=== PATIENT | female | born 1975 | race Caucasian/White ===

== ENCOUNTER → 2022-09-18 08:21 | Outpatient (BNVA) | payer OTHER, SELFPAY | PROVIDERS: PCP Nurse Practitioner Family; Visit Provider Physician Assistant Surgical ==

== ENCOUNTER → 2022-09-29 13:45 | Outpatient (BNVA) | payer OTHER, SELFPAY | PROVIDERS: PCP Nurse Practitioner Family; Visit Provider Physician Assistant Surgical | DX: E66.01 Morbid (severe) obesity due to excess calories (principal); G47.33 Obstructive sleep apnea (adult) (pediatric) | CPT/HCPCS: 99202 ==

== ENCOUNTER 2022-10-13 06:30 | Outpatient (REF) | payer OTHER, SELFPAY ==
--- NOTE | ~2022-10-13 | XR_ITS ---
EXAMINATION: XR CHEST CLINICAL INFORMATION: Bariatric service evaluation. E66.01. COMPARISON: None available. TECHNIQUE: 2 views of the chest were obtained. FINDINGS: Lungs are clear. No airspace consolidation or groundglass opacity or effusion. Costophrenic sulci are well-defined. Cardiopericardial silhouette within limits of normal. Vascularity normal. The hilar and mediastinal contours are unremarkable. There are multilevel degenerative disc changes thoracic spine. XR/XR chest 2V IMPRESSION: Unremarkable examination.
--- NOTE | 2022-10-13 06:38 | ECG_ITS ---
Test Reason : e66.01 Blood Pressure : / mmHG Vent. Rate : 073 BPM Atrial Rate : 073 BPM P-R Int : 154 ms QRS Dur : 112 ms QT Int : 412 ms P-R-T Axes : 019 010 030 degrees QTc Int : 453 ms Normal sinus rhythm Incomplete right bundle branch block Borderline ECG No previous ECGs available Referred By: Garcia Quiroz Electronically Signed By:VEDA GILLETTE
[2022-10-13 06:51] LABS: MANUAL DIFF FLAG NO
[2022-10-13 08:02] LABS: Basophils Percent Auto 0.7 % (0-2); Eosinophils Absolute Auto 0.1 X10*3/uL (0.0-0.4); Eosinophils Percent Auto 2.1 % (0-4); Hematocrit 44.1 % (37.0-47.0); Hemoglobin 14.1 g/dl (12.0-16.0); Imm Gran Abs Auto 0.01 X10*3/uL (0.00-0.03); Imm Gran Pct Auto 0.2 % (0.0-0.4); Lymphocytes Absolute Auto 1.1 X10*3/uL (1.2-4.9); Lymphocytes Percent Auto 26.1 % (20-40); Mean Corpuscular Hemoglobin 29.8 pg (27.0-33.0); Mean Corpuscular Volume 93.2 fL (80.0-98.0); Mean Platelet Volume 9.8 fL (9.4-12.3); Monocytes Absolute Auto 0.3 X10*3/uL (0.1-1.2); Monocytes Percent Auto 6.6 % (2-11); Neutrophils Absolute Auto 2.8 x10*3/uL (2.0-8.3); Neutrophils Percent Auto 64.3 % (45-73); Platelet Count 245 X10*3/uL (160-400); Red Blood Count 4.73 X10*6/uL (4.20-5.50); Red Cell Distribution Width 12.6 % (11.0-16.0); White Blood Count 4.4 X10*3/uL (4.8-10.8)
[2022-10-13 08:15] LABS: Estimated Average Glucose 105 mg/dL; Hemoglobin A1c % 5.3 %
[2022-10-13 08:47] LABS: Alanine Aminotransferase 15 U/L (0-31); Albumin Level 4.4 g/dL (3.5-5.0); Alkaline Phosphatase 86 U/L (39-117); Anion Gap 15 (12-20); Aspartate Amino Transferase 18 U/L (5-31); Bilirubin Total 0.7 mg/dL (0.0-1.0); Blood Urea Nitrogen 21 mg/dL (9-16); C Reactive Protein 0.14 mg/dL (< or = 0.50); Calcium 9.8 mg/dL (8.4-10.2); Carbon Dioxide 26 mmol/L (22-29); Chloride 108 mmol/L (96-108); Cholesterol 168 mg/dL; Estimated Glomerular Filt Rate > 60; Glucose Random 97 mg/dL (60-115); HDL Cholesterol 55 mg/dL; Iron 84 mcg/dL (30-160); LDL Cholesterol Calculated 104 mg/dl; Percent Iron Saturation 31 % (15-50); Potassium 4.7 mmol/L (3.3-5.1); Sodium 144 mmol/L (135-145); Total Iron Binding Capacity 274 mcg/dL (228-428); Triglycerides 48 mg/dL; Unsaturated Iron Binding 190 ug/dL
[2022-10-13 08:58] LABS: Ferritin 147 ng/mL (10-250); Folate 12.1 ng/mL (> or = 4.0); Insulin 3 uU/mL (2-29); TSH reflex Free T4 1.48 uIU/mL (0.32-4.0); Vitamin B12 347 pg/mL (200-900); Vitamin D 25-OH Total 20.1 ng/mL (>30)
[2022-10-16 15:29] LABS: Calcium (PTHI) 9.8 mg/dL (8.6-10.2); PTHI 30 pg/mL (16-77)
[2022-10-18 05:18] LABS: Zinc 86 mcg/dL (60-130)
[2022-10-19 10:38] LABS: Vitamin A 48 mcg/dL (38-98)
[2022-10-19 16:33] LABS: Vitamin B1 14 nmol/L (8-30)
== END 2022-10-13 06:31 | disposition home or self-care (01) ==
LOC: HO.XRAY 06:30
PROVIDERS: PCP Nurse Practitioner Family; Visit Provider Physician Assistant Surgical
DX: E66.01 Morbid (severe) obesity due to excess calories (principal); I10 Essential (primary) hypertension
CPT/HCPCS: 36415; 71046; 80053; 80061; 82306; 82607; 82728; 82746; 83036; 83525; 83540; 83970; 84425; 84443; 84590; 84630; 85025; 86140; 93005

== ENCOUNTER 2022-10-20 09:12 | Outpatient (REF) | payer OTHER, SELFPAY ==
[2022-10-21 14:08] LABS: H Pylori Breath Test Negative (Negative)
== END 2022-10-20 09:13 | disposition home or self-care (01) ==
LOC: HO.LNP 09:12
PROVIDERS: PCP Nurse Practitioner Family; Visit Provider Physician Assistant Surgical
DX: E66.01 Morbid (severe) obesity due to excess calories (principal); I10 Essential (primary) hypertension; Z71.3 Dietary counseling and surveillance; Z79.899 Other long term (current) drug therapy; Z11.0 Encounter for screening for intestinal infectious diseases
CPT/HCPCS: 83013; 99211; 99212

== ENCOUNTER → 2022-10-27 08:54 | Outpatient (BNVA) | payer OTHER, SELFPAY | PROVIDERS: PCP Nurse Practitioner Family; Visit Provider Counselor Mental Health ==

== ENCOUNTER → 2022-10-30 08:50 | Outpatient (BNVA) | payer OTHER, SELFPAY | PROVIDERS: PCP Nurse Practitioner Family; Visit Provider Dietitian, Registered | DX: E66.01 Morbid (severe) obesity due to excess calories (principal); Z68.41 Body mass index [BMI] 40.0-44.9, adult | CPT/HCPCS: 97802 ==

== ENCOUNTER → 2022-11-02 14:50 | Outpatient (REF) | payer OTHER, SELFPAY | LOC: HO.SL 14:50 | PROVIDERS: PCP Nurse Practitioner Family; Visit Provider Physician Assistant Surgical | DX: G47.33 Obstructive sleep apnea (adult) (pediatric) (principal) | CPT/HCPCS: 95806 ==

== ENCOUNTER → 2022-11-07 07:26 | Outpatient (REF) | payer OTHER, SELFPAY ==
--- NOTE | 2022-11-07 07:30 | CA_ITS ---
Transthoracic Echocardiogram Patient (Last, First, Middle): Thais Dugan, Gender: Female Date of : 1975 Age: 47 Procedure Date: 11/07/2022 Procedure Type: Transthoracic Echocardiogram Location: OP Height: 157.48 cm Weight: 108.41 kg BSA: 2.06 m2 Heart Rate: bpm BP: 130 / 90 mmHg Appraisal Technician: TO Referring MD: Garcia WOODS Symptoms: R94.31 - Abnormal electrocardiogram [ECG] [EKG] Study Quality: Fair/Contrast ECG Rhythm: Sinus Conclusions: - The left ventricular systolic function is normal. The calculated ejection fraction is 63% by biplane method. - No obvious valvular pathology seen on this study. Findings Procedure Information Contrast agent, definity, is being given per protocol without apparent complications. Left Ventricle Normal left ventricular cavity size. The left ventricular systolic function is normal. The calculated ejection fraction is 63% by biplane method. There is no evidence of regional wall motion abnormalities. Diastolic function is normal for age. There is mild septal asymmetric hypertrophy. Right Ventricle Normal right ventricular cavity size and systolic function. Atria Both atria are normal in size. Aortic Valve There is a normal trileaflet aortic valve. There is no aortic valve stenosis. There is no aortic valve regurgitation. Mitral Valve The mitral valve appears normal. There is trace mitral valve regurgitation. There is no mitral valve stenosis. Pulmonic Valve The pulmonic valve is likely normal. Tricuspid Valve There is trace tricuspid valve regurgitation. There is no evidence of pulmonary hypertension. Great Vessels The asc aorta is normal in size. Venous The inferior vena cava is normal in size and collapses greater than 50% with inspiration. Pericardium/Pleural There is a trivial pericardial effusion. Prior Study Comparison No prior study available for comparison. Recommendations, Care & Conclusions No obvious valvular pathology seen on this study. Measurements 2D Linear Measurements IVSd: 1.14 0.6-0.9/0.6-1.0 cm LVIDd: 4.52 3.9-5.3/4.2-5.9 cm LVIDd Index: 2.19 2.4-3.2/2.2-3.1 cm/m2 LVIDs: 2.95 2.0-3.6 cm LVPWd: 0.84 0.7-1.1 cm LA Diam: 3.80 2.7-3.8/3.0-4.0 cm LAIDs Index: 1.84 1.5-2.3 cm/m2 LV Mass: 189.83 67-162/88-224 g LV Mass Index: 92.15 43-95/49-115 g/m2 LVOT Diam: 2.40 3.0+(-)1.3 cm 2D Systolic Function EF 4C: 64.70 >55% EF 2C: 61.70 >55% EF BiP: 63.20 >55% Mitral Valve MV Pk E: 0.84 MV PK A: 0.88 MV Decel Time: 168.00 E/A: 1.00 E'Lateral: 10.00 E'Medial: 7.51 E/E' Med: 11.20 E/E' Lat: 8.40 PHT: 101.00 MVA PHT: 2.18 [place]: 3.32 Aortic Valve AoV Pk Deni: 1.23 AoV Mn Deni: 0.88 AoV VTI: 0.28 AoV Pk Grad: 6.00 Aov Mn Grad: 3.00 ORTIZ Cont.VTI: 3.47 LVOT LVOT Pk Deni: 0.97 LVOT Mn Deni: 0.62 LVOT VTI: 0.21 LVOT Pk Grad: 4.00 LVOT Mn Grad: 2.00 LVOT Diam: 2.40 LVOT Area: 4.52 Diastolic Function MV Pk E: 0.84 MV Pk A: 0.88 E/A: 1.00 E'Medial: 7.51 E/E' Med: 11.20 E' Laterial: 10.00 E/E' Lat: 8.40 Right Ventricle TAPSE (mm): 34.00 TVS' Deni: 16.40 Tricuspid Valve TR Pk Deni: 2.58 TR Pk Grad: 27.00 RA Press: 3.00 RVSP: 30.00 Great Vessels Aorta Sinus of Valsalva: 3.20 2.0-3.5 cm Ao Asc: 3.00 2.1-3.4 cm Updated in Other Vendor System with Status of Final Jason Valdez MD electronically signed on 11/07/2022 3:31:57 PM with status of Final
== END ==
LOC: HO.CARD 07:26
PROVIDERS: PCP Nurse Practitioner Family; Visit Provider Physician Assistant Surgical
DX: R94.31 Abnormal electrocardiogram [ECG] [EKG] (principal)
CPT/HCPCS: 93306; Q9957

== ENCOUNTER → 2022-11-14 09:03 | Outpatient (REF) | payer OTHER, SELFPAY ==
--- NOTE | ~2022-11-14 | NM_ITS ---
Myocardial perfusion study Indication: Abnormal EKG to evaluate for myocardial ischemia Technique: The patient was brought in for a Lexiscan perfusion study on 11/14/2022. Patient performed low-level exercise and was injected 0.4 mg of Lexiscan intravenously. Within a minute of injection, 40 mCi of sestamibi was given intravenously. Images were obtained using the SPECT gamma camera interlaced with the gating device. Images were obtained in supine position. Resting perfusion study was performed on 11/15/2022. Patient was administered 40 mCi of sestamibi intravenously at rest. Images were then obtained in supine position. Images obtained with and without CT attenuation. Total DLP 151 mGy-cm. Images were processed with the software and compared side to side in short axis, horizontal long axis and vertical long axis views. Findings: The stress perfusion study showed non attenuated images show small area of mildly to moderately reduced uptake in the apex of the myocardium. There is suggestion of left ventricle hypertrophy. Attenuation corrected images show normal uptake of tracer myocardium.. The gated study shows normal LV systolic function with calculated LVEF of 60%. LV cavity is normal in size. The gated study shows normal systolic wall thickening and contraction of segments. Resting study shows non attenuated images show improved uptake in the apex of the myocardium. Attenuation corrected images are suboptimal. Gating at rest reveals normal systolic wall motion with ejection fraction at 50%. The findings are consistent with equivocal findings of possible small to moderate intensity small area of apical ischemia. NM/NM wade perf SPECT rest & str Impression: 1. Myocardial perfusion imaging study shows equivocal apical ischemia 2. Gated LVEF is 60% 3. Transient ischemic dilatation not present EKG nondiagnostic for ischemia
--- NOTE | 2022-11-14 09:06 | CA_ITS ---
Acquisition Time: 2022-11-14 09:13:34 Total Exercise Time: 00:02:00 Test Indications: Abnormal ECG Medications: LISINOPRIL HYDROXYZINE SERTRALINE Protocol: LEXISCAN Max HR: 120 BPM 70% of Pred: 171 BPM Max BP: 128/072 mmHG Max Work Load: 1.0 METS Pharmacological stress test with Lexiscan injection while sitting and kicking her legs, without anginal symptoms, without arrhythmias, with normotensive response to injection, without EKG changes. Nuclear images pending. Test reviewed with Dr. Woods. Referred By: Garcia Quiroz Overread By: WILMA STORM
== END ==
LOC: HO.CARD 09:03
PROVIDERS: PCP Nurse Practitioner Family; Visit Provider Physician Assistant Surgical
DX: R94.31 Abnormal electrocardiogram [ECG] [EKG] (principal)
CPT/HCPCS: 78452; 93017; A9500; J0280; J2785

== ENCOUNTER → 2022-11-15 12:47 | Outpatient (BNVA) | payer OTHER, SELFPAY | PROVIDERS: PCP Nurse Practitioner Family; Visit Provider Nurse Practitioner Family | DX: R06.83 Snoring (principal) | CPT/HCPCS: 99202 ==

== ENCOUNTER → 2022-11-17 11:50 | Outpatient (BNVA) | payer OTHER, SELFPAY | PROVIDERS: PCP Nurse Practitioner Family; Visit Provider Counselor Mental Health ==

== ENCOUNTER 2022-11-21 08:55 | Outpatient (REF) | payer OTHER, SELFPAY ==
--- NOTE | ~2022-11-21 | FL_ITS ---
EXAMINATION: XR FLUOROSCOPY UPPER GI WITH AIR CLINICAL INFORMATION: Morbid (severe) obesity due to excess calories. COMPARISON: None available. TECHNIQUE: Routine upper GI air-contrast study was performed in upright and lying position. FINDINGS: Following oral administration of thick barium and effervescent granules, there is normal propagation of bolus from the oral cavity through the pharynx, esophagus into stomach without any evidence of obstruction, narrowing or stricture. On placing patient supine and prone lying the course, caliber and peristalsis of the stomach duodenal bulb and the sweep is normal. The mucosal pattern of the stomach and duodenum is normal. Barium pooling and fragmentation in the distal stomach. No ulceration seen. There is small sliding hiatal hernia with mild gastroesophageal reflux. FLUOROSCOPY TIME: 1.2 minutes DOSE AREA PRODUCT: 32.356 uGy-m2 (microgray-meter squared). IMAGES: 36 FL/FL upper GI w air IMPRESSION: Small sliding hiatal hernia with barium pooling and fragmentation distal stomach suspicious for hyperacidity. There is mild gastroesophageal reflux.
--- NOTE | ~2022-11-21 | US_ITS ---
EXAMINATION: US COMPLETE ABDOMEN WITH LIVER ELASTOGRAPHY CLINICAL INFORMATION: Obesity COMPARISON: None available. TECHNIQUE: Real-time imaging of the abdominal viscera. Noninvasive ultrasound liver fibrosis assessment is performed using Lilly ElastPQ point quantification shear wave elastography (2D-SWE) with a C5-2 MHz transducer. Multiple elastography samples are obtained. FINDINGS: PANCREAS: Limited visualization of the pancreas due to bowel gas. ABDOMINAL AORTA: The proximal, middle, and distal aortic segments are normal in caliber. INFERIOR VENA CAVA: Visualized portions are normal. LIVER: Normal. The liver demonstrates normal size, contour and echogenicity. No focal lesion or intrahepatic biliary duct dilatation. The right lobe measures 16 cm in length. The left lobe measures 11 cm in length. Portal flow is normal/hepatopedal Shear wave liver elastography median stiffness is 2 m/s (reference: normal median stiffness is 1.3 m/s or less). IQR/median stiffness to assess sampling precision is 0.1 (reference: good quality data set is IQR/median stiffness of 0.15 or less). GALLBLADDER: Surgically removed COMMON BILE DUCT: Normal in caliber measuring 0.4 cm in diameter. RIGHT KIDNEY: Normal. No hydronephrosis. No renal calculi or focal parenchymal lesions. The kidney measures 9 cm in maximum dimension. LEFT KIDNEY: Normal. No hydronephrosis. No renal calculi or focal parenchymal lesions. The kidney measures 11 cm in maximum dimension. SPLEEN: Normal. The spleen measures 10 cm in maximum dimension. FREE FLUID: None. US/US abdomen comp w elastography IMPRESSION: 1. Impression: Normal-appearing liver. Postcholecystectomy. Limited visualization of the pancreas. 2. Liver elastography: Adequate liver sampling. Increased liver stiffness suggestive of compensated advanced chronic liver disease but need further test for confirmation. REFERENCE: Society of Radiologists in Ultrasound Liver Stiffness Thresholds (2020): LIVER STIFFNESS THRESHOLDS: *Liver Stiffness equal or less than 1.3 m/s: High probability of being normal. *Liver Stiffness less than 1.7 m/s: In the absence of other known clinical signs, rules out compensated advanced chronic liver disease. *Liver Stiffness 1.7-2.1 m/s: Suggestive of compensated advanced chronic liver disease but need further test for confirmation. *Liver Stiffness over 2.1 m/s: Rules in compensated advanced chronic liver disease. *Liver Stiffness over 2.4 m/s: Suggestive of clinically significant portal hypertension. QUALITY OF DATA SET: *IQR/Median value equal or less than 0.15 implies a quality data set. *IQR/Median value over 0.15 implies a poor quality data set. SIGNIFICANT CHANGE FROM PRIOR EXAM: Significant change if liver stiffness measurement is 10% or greater from prior exam. OTHER CONSIDERATIONS: The stage of liver fibrosis may be overestimated in the setting of acute hepatitis, liver inflammation, elevated liver function tests, hepatic vascular congestion, obstructive cholestasis, non-fasting state, and infiltrative diseases such as amyloidosis and lymphoma. In some patients with NAFLD, the liver stiffness thresholds for compensated advanced chronic liver disease may be lower. In causes other than viral hepatitis and NAFLD, liver stiffness thresholds are not well established.
== END 2022-11-21 08:56 | disposition home or self-care (01) ==
LOC: HO.US 08:55
PROVIDERS: PCP Nurse Practitioner Family; Visit Provider Physician Assistant Surgical
DX: E66.01 Morbid (severe) obesity due to excess calories (principal); I10 Essential (primary) hypertension
CPT/HCPCS: 74246; 76705; 76981

== ENCOUNTER 2023-01-16 14:50 | Outpatient (AMB) | payer OTHER, SELFPAY ==
--- NOTE | 2023-01-16 14:55 | A.OFFVIS_ITS ---
Intake VS Expanded 01/16/23 14:59 Height 5 ft 3 in Weight 243 lb 12.8 oz BMI 43.2 BP 127/91 H Blood Pressure Location Rt brachial Blood Pressure Position Sitting Pulse 107 H Pulse Source Pulse Oximeter Temp 97.7 F Temperature Source Temporal Artery Scan Pulse Oximetry 96 Oxygen Delivery Method Room Air Body Fat 110.8 Body Fat Percentage 45.5 Free Fat Mass 132.8 Muscle Mass 126.2 Visceral Mass 14.0 Water Mass 94.6 BMR 1,865 Intake Visit Reasons: (OV) F/U SWL Bituminous Distributor Operator Required: Yes Bituminous Distributor Operator Name: office cmi Allergies Penicillins Allergy (Mild, Verified 01/16/23 14:57) rash Medication List - Last Reconciled 01/16/23 by PEGGY Yip cholecalciferol (vitamin D3) 125 mcg PO DAILY HPI HPI Comments History of Present Illness Details The patient is a pleasant 47 year old female who returns to the clinic for pre-operative surgical weight loss management. They were last seen in the office on 10/20/22 and missed f/u on 12/19/22, , recorded weight at that time was 241.6 pounds, with a BMI of 42.7. Today's weight is 243.8 pounds and BMI is 43 .2. There has been a weight loss of 6.6 pounds since initiating the surgical weight loss program on 09/29/22 with a total body weight loss of 2.63 %. Pre op work up completed as follows: SWL classes:? 01/30 BH appts: cleared 11/17/22 ? ? RD appts: cleared-10/30/22 Labs: 10/13/22 low D, B12: 347 H. pylori: 10/20/22-neg CXR: 10/13/22-nad EK10/13/22-incomplete RBBB- ordered ECHO and NM stress, 11/14/22-Normal EF, no valvular pathology sleep study 11/09/22-normal ABD U/S: 11/21/22-fatty liver UGI: 11/21/22-mild GERD, small HH The patient reports she missed several appts due to covid and transportation. She was able to accurately describe her meal plan and states she has been following it over the last 3 months. She was in [place] for a week and gained 5 pounds. Current meal plan includes: 3 Premier Protein shakes, (1 scoop in 8 oz low fat unsweetened almond milk first two shakes) First shake at 530am-730am on work days and 8am-10am on non-work days, Second shake at? 930am-1130am on work days and 12pm-2pm on non-work days 1 protein bar (Zone Perfect bars) at 2pm-4pm on work days and 3pm-5pm on non- work days. Dinner at 530pm (8 forks of protein and 8 forks of salad/vegetables). Third shake (1/2 scoop) at 630pm-830pm everyday. Drinking 64 oz of water Current exercise plan includes: walking on treadmill, 175-200 calories 5 days per week, speed 2.5-3, incline PFSH Surgical History Hx of section Hx of cholecystectomy Hx of hysterectomy Hx of tubal ligation Family History Mother IgG4 deficiency Hypertension Father Diabetes Liver problem Son Diabetes Son No problems noted. Social History Alcohol intake: never Patient Tobacco Use Status: Never used Tobacco Physical Exam Const General: healthy appearing and no acute distress Resp Effort & Inspection: normal respiratory effort Auscultation: clear to auscultation bilaterally Cardio Rate: regular rate Rhythm: regular rhythm GI Auscultation: normal bowel sounds Extrem General: Yes normal to inspection Assessment & Plan Assessment & Plan (1) Morbid obesity: Code(s): E66.01 - Morbid (severe) obesity due to excess calories Plan: Not seen in 3 months. Expected much more weight loss States she is following plan aside from vacation in [place]. Exercise lacking Given paper for [facility] and asked to review original email from 09/29/22. Will rtc 1 month Coding Level of Care Code Est Pt Level 3 (12811) Diagnoses Morbid obesity E66.01
[2023-01-16 14:59] VITALS: BP 127/91; PULSE 107; TEMP 36.5; O2SAT 96; BMI 43.2
== END 2023-01-16 15:23 | disposition home or self-care (01) ==
PROVIDERS: PCP Nurse Practitioner Family; Visit Provider Physician Assistant Surgical
DX: E66.01 Morbid (severe) obesity due to excess calories (principal); Z68.41 Body mass index [BMI] 40.0-44.9, adult
CPT/HCPCS: 99213

== ENCOUNTER → 2023-01-16 14:50 | Outpatient (BNVA) | payer OTHER, SELFPAY | PROVIDERS: PCP Nurse Practitioner Family; Visit Provider Physician Assistant Surgical | DX: E66.01 Morbid (severe) obesity due to excess calories (principal); Z68.41 Body mass index [BMI] 40.0-44.9, adult | CPT/HCPCS: 99213 ==

== ENCOUNTER 2023-02-19 12:17 | Outpatient (AMB) | payer OTHER, SELFPAY ==
--- NOTE | 2023-02-19 12:51 | MHC.OFFVIS ---
Intake Vital Signs 02/19/23 12:52 Height 5 ft 3 in Weight 256 lb 2.834 oz BMI 45.4 BP 138/86 Blood Pressure Location Lt brachial Position Sitting Pulse 85 Intake Visit Reasons: Abnormal EKG Intake Note: NPV Machine Attendant Required: Yes Machine Attendant Language: Medical Technologist Clinical Name: [id number] Stephanie Accompanied by: Self / Same As Patient Allergies Penicillins Allergy (Mild, Verified 02/19/23 12:52) rash Medication List - Last Reconciled 02/19/23 by Jason Valdez MD cholecalciferol (vitamin D3) 125 mcg PO DAILY HPI HPI Comments History of Present Illness Details Thais is here for consultation regarding abnormal stress test. She underwent stress test for preoperative evaluation for bariatric surgery and that showed equivocal findings for apical ischemia and hence she has been referred. No known coronary disease in the past. She is morbidly obese but otherwise no major comorbidities. She states she exercise on the treadmill but does not get any chest pain. Otherwise, generally okay. PFSH Surgical History Hx of section Hx of cholecystectomy Hx of hysterectomy Hx of tubal ligation Family History Mother IgG4 deficiency Hypertension Father Diabetes Liver problem Son Diabetes Son No problems noted. Social History Alcohol intake: never Patient Tobacco Use Status: Never used Tobacco Review of Systems Const Denies chills, Denies daytime sleepiness, Denies fatigue, Denies fever(s), Denies frequent falls, Denies night sweats, Denies snoring, Denies weakness, Denies weight gain and Denies weight loss Eyes Denies loss of vision ENT Denies dizziness and Denies hearing loss Card Denies chest pain, Denies chest pain with activity, Denies syncope, Denies rapid heart rate, Denies edema, Denies claudication, Denies leg edema, Denies lightheadedness, Denies palpitations, Denies dyspnea, Denies dyspnea on exertion and Denies orthopnea Resp Denies cough, Denies excessive phlegm production, Denies dyspnea, Denies dyspnea on exertion, Denies snoring and Denies wheezing GI Denies abdominal pain, Denies hematochezia, Denies change in bowel habits, Denies change in stool character, Denies heartburn, Denies nausea and Denies vomiting Denies hematuria, Denies urinary frequency and Denies dysuria Musc Denies arthralgias, Denies muscle weakness, Denies numbness and Denies tingling Skin/Breast Denies nail changes and Denies rash Neuro Denies Abnormal speech present, Denies dizziness, Denies syncope, Denies frequent falls, Denies loss of vision, Denies memory loss, Denies numbness, Denies tingling and Denies weakness Psych Denies depression and Denies memory loss Endo Denies fatigue and Denies palpitations Aller/Immun Denies wheezing Physical Exam Vital Signs: Last Vital Signs Pulse 85 02/19/23 12:52 BP 138/86 02/19/23 12:52 BMI result Body Mass Index 45.4 Const General: comfortable and no acute distress Orientation/consciousness: patient oriented x3 HEENT Other: Unremarkable Head: Yes normal to inspection Neck Neck: Yes normal visual inspection Chest Chest palpation & inspection: normal inspection of the chest Resp Auscultation: clear to auscultation bilaterally Cardio Palpation: normal PMI Heart sounds: S1 normal heart sound present, S2 normal heart sound present, no gallops, no murmurs and no rubs GI Palpation (GI): Soft to palpation Back/Spine/Pelvis Other: unremarkable Skin General skin exam: no rashes or lesions noted Neuro General: patient oriented x3 Speech: No Abnormal speech present Extrem General: Yes normal to inspection Psych Mental Status: mental status grossly normal Assessment & Plan Assessment & Plan (1) Preoperative cardiovascular examination: Code(s): Z01.810 - Encounter for preprocedural cardiovascular examination (2) Abnormal myocardial perfusion study: Code(s): R94.39 - Abnormal result of other cardiovascular function study Plan EKG with sinus rhythm at 73/Min; mild nonspecific QRS widening with incomplete right bundle pattern and otherwise unremarkable. Echocardiogram with LVEF of 63%. Mild septal hypertrophy. No wall motion abnormalities. Otherwise unremarkable. Myocardial perfusion imaging study shows equivocal apical ischemia. Findings could be related to just obesity. Less likely she has significant stenosis in the LAD. We will check a coronary CTA. Can make an addendum once that is reviewed. Orders: Orders CT Cardiac Coronary Angio Today I25.10 - Atherosclerotic heart disease of [place] coronary artery without angina pectoris, Z01.810 - Encounter for preprocedural cardiovascular examination Coding Level of Care Code New Pt Level 3 (84642) Diagnoses Preoperative cardiovascular examination Z01.810 Abnormal myocardial perfusion study R94.39
[2023-02-19 12:52] VITALS: BP 138/86; PULSE 85; BMI 45.4
== END 2023-02-19 13:09 | disposition home or self-care (01) ==
PROVIDERS: PCP Nurse Practitioner Family; Referring Provider Nurse Practitioner Family; Visit Provider Internal Medicine
DX: R94.39 Abnormal result of other cardiovascular function study (principal); Z01.810 Encounter for preprocedural cardiovascular examination
CPT/HCPCS: 99203

== ENCOUNTER → 2023-02-19 12:17 | Outpatient (BNVA) | payer OTHER, SELFPAY | PROVIDERS: PCP Nurse Practitioner Family; Referring Provider Nurse Practitioner Family; Visit Provider Internal Medicine | DX: Z01.810 Encounter for preprocedural cardiovascular examination (principal); R94.39 Abnormal result of other cardiovascular function study | CPT/HCPCS: 99202 ==

== ENCOUNTER 2023-03-21 14:28 | Outpatient (AMB) | payer OTHER, SELFPAY ==
--- NOTE | 2023-03-21 14:37 | MHC.OFFVISWM ---
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 They were last seen in the office on 01/16/23, recorded weight at that time was 243.8 pounds, with a BMI of 43.2. Today's weight is 251 pounds and BMI is 44.5. There has been a weight loss of [] pounds since initiating the surgical weight loss program on 09/29/22 with a total body weight loss of [] %. Pre op work up completed as follows: SWL classes:? 01/30 BH appts: cleared 11/17/22 ? ? RD appts: cleared-10/30/22 Labs: 10/13/22 low D, B12: 347 H. pylori: 10/20/22-neg CXR: 10/13/22-nad EK10/13/22-incomplete RBBB- ordered ECHO and NM stress, 11/14/22-Normal EF, no valvular pathology, seen by cards 02/19/23, coronary CTA ordered, Sleep study 11/09/22 normal sleep study 11/09/22-normal ABD U/S: 11/21/22-fatty liver UGI: 11/21/22-mild GERD, small HH The patient reports she had an accident at work and hurt her back and left leg. She has since been unable to exercise for the last 5 weeks. Treated with antispamodics and antiimflammatories. Not following the meal plan exactly for the first couple weeks after the surgery. Current meal plan includes: 3 Premier Protein shakes, (1 scoop in 8 oz low fat unsweetened almond milk first two shakes) First shake at 530am-730am on work days and 8am-10am on non-work days, Second shake at? 930am-1130am on work days and 12pm-2pm on non-work days 1 protein bar (Zone Perfect bars) at 2pm-4pm on work days and 3pm-5pm on non-work days. Dinner at 530pm (8 forks of protein and 8 forks of salad/vegetables). Third shake (1/2 scoop) at 630pm-830pm everyday. Drinking 64 oz of water Current exercise plan includes: none in the last 5 weeks PFSH Surgical History Hx of cholecystectomy Hx of hysterectomy Hx of tubal ligation Hx of section Family History Mother IgG4 deficiency Hypertension Father Diabetes Liver problem Son Diabetes Son No problems noted. Social History Alcohol intake: never Patient Tobacco Use Status: Never used Tobacco Review of Systems Const All systems reviewed & are unremarkable except as noted in HPI and below Physical Exam Vital Signs: Last Vital Signs Temp 97.6 F 03/21/23 14:40 Pulse 88 03/21/23 14:40 BP 125/68 03/21/23 14:40 Pulse Ox 96 03/21/23 14:40 Oxygen Delivery Method Room Air 03/21/23 14:40 BMI result Body Mass Index 44.5 Const General: healthy appearing and no acute distress Resp Effort & Inspection: normal respiratory effort Auscultation: clear to auscultation bilaterally Cardio Rate: regular rate Rhythm: regular rhythm GI Auscultation: normal bowel sounds Extrem General: Yes normal to inspection and Yes Limp noted Assessment & Plan Assessment & Plan (1) Morbid obesity: Code(s): E66.01 - Morbid (severe) obesity due to excess calories Plan: encouraged her to go to PCP and get referral for PT, she states she will do that today Able to recount meal plan exactly. RTC 2 months Coding Level of Care Code Est Pt Level 3 (30032) Diagnoses Morbid obesity E66.01
[2023-03-21 14:40] VITALS: BP 125/68; PULSE 88; TEMP 36.4; O2SAT 96; BMI 44.5
== END 2023-03-21 15:06 | disposition home or self-care (01) ==
PROVIDERS: PCP Nurse Practitioner Family; Visit Provider Physician Assistant Surgical
DX: E66.01 Morbid (severe) obesity due to excess calories (principal); Z68.41 Body mass index [BMI] 40.0-44.9, adult
CPT/HCPCS: 99213

== ENCOUNTER → 2023-03-21 14:28 | Outpatient (BNVA) | payer OTHER, SELFPAY | PROVIDERS: PCP Nurse Practitioner Family; Visit Provider Physician Assistant Surgical | DX: E66.01 Morbid (severe) obesity due to excess calories (principal); I45.19 Other right bundle-branch block; K76.0 Fatty (change of) liver, not elsewhere classified; K21.9 Gastro-esophageal reflux disease without esophagitis; Z68.41 Body mass index [BMI] 40.0-44.9, adult; Z90.49 Acquired absence of other specified parts of digestive tract | CPT/HCPCS: 99212 ==

== ENCOUNTER 2023-08-29 09:53 | Outpatient (AMB) | payer OTHER, SELFPAY ==
--- NOTE | 2023-08-29 09:54 | A.OFFVIS_ITS ---
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 They were last seen in the office on 03/21/23, recorded weight at that time was 251 pounds, with a BMI of 44.5. Today's weight is 251 pounds and BMI is 44.5. There has been a weight gain of 0.6 pounds since initiating the surgical weight loss program on 09/29/22. She was not seen since February and states that she became discouraged as she was not losing weight. She states that her spouse has encouraged her and she would like to try again. Pre op work up completed as follows: SWL classes:? 01/30 appts: cleared 11/17/22 ? ? RD appts: cleared-10/30/22 Labs: 10/13/22 low D, B12: 347 H. pylori: 10/20/22-neg CXR: 10/13/22-nad EK10/13/22-incomplete RBBB- ordered ECHO and NM stress, 11/14/22-Normal EF, no valvular pathology, seen by cards 02/19/23, coronary CTA ordered, Sleep study 11/09/22 normal sleep study 11/09/22-normal ABD U/S: 11/21/22-fatty liver UGI: 11/21/22-mild GERD, small HH Current meal plan includes: 3 Premier Protein shakes, (1 scoop in 8 oz low fat unsweetened almond milk first two shakes) First shake at 530am-730am on work days and 8am-10am on non-work days, Second shake at? 930am-1130am on work days and 12pm-2pm on non-work days 1 protein bar ([employer] bars) at 2pm -4pm on work days and 3pm-5pm on non- work days. Dinner at 530pm (8 forks of protein and 8 forks of salad/vegetables). Third shake (1 scoop) at 630pm-830pm everyday. Drinking 64 oz of water Current exercise plan includes: none but now has a treadmill and bike at home PFSH Surgical History Hx of cholecystectomy Hx of hysterectomy Hx of tubal ligation Hx of section Family History Mother IgG4 deficiency Hypertension Father Diabetes Liver problem Son Diabetes Son No problems noted. Social History Alcohol intake: never Patient Tobacco Use Status: Never used Tobacco Physical Exam Const General: healthy appearing and no acute distress Resp Effort & Inspection: normal respiratory effort Auscultation: clear to auscultation bilaterally Cardio Rate: regular rate Rhythm: regular rhythm GI Auscultation: normal bowel sounds Extrem General: Yes normal to inspection Assessment & Plan Assessment & Plan (1) Morbid obesity: Code(s): E66.01 - Morbid (severe) obesity due to excess calories Plan: Patient wishes to restart our program. She has been given the meal plan as listed above. We will have her return to the office in approximately 4 weeks with the understanding that if she is able to commit to the program we will happily continue to help her. If she is unable to commit to the program. She will consider other options. Coding Level of Care Code Est Pt Level 3 (73722) Diagnoses Morbid obesity E66.01
[2023-08-29 10:01] VITALS: BP 139/67; PULSE 97; TEMP 36.1; O2SAT 97; BMI 45.9
== END 2023-08-29 10:20 | disposition home or self-care (01) ==
PROVIDERS: PCP Nurse Practitioner Family; Visit Provider Physician Assistant Surgical
DX: E66.01 Morbid (severe) obesity due to excess calories (principal); Z68.42 Body mass index [BMI] 45.0-49.9, adult
CPT/HCPCS: 99213

== ENCOUNTER → 2023-08-29 09:53 | Outpatient (BNVA) | payer OTHER, SELFPAY | PROVIDERS: PCP Nurse Practitioner Family; Visit Provider Physician Assistant Surgical | DX: E66.01 Morbid (severe) obesity due to excess calories (principal); Z68.42 Body mass index [BMI] 45.0-49.9, adult | CPT/HCPCS: 99212 ==

== ENCOUNTER 2023-09-26 14:55 | Outpatient (AMB) | payer OTHER, SELFPAY ==
--- NOTE | 2023-09-26 14:59 | MHC.OFFVISWM ---
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 They were last seen in the office on 08/29/23, recorded weight at that time was 251 pounds, with a BMI of 445.9. Today's weight is 251 pounds and BMI is 44.5. There has been a weight loss of 4.2 lb pounds or 1.6 % TBWL since initiating the surgical weight loss program on 09/29/22. She was not seen since February and states that she became discouraged as she was not losing weight. She states that her spouse has encouraged her and she would like to try again. She was last seen in August and prior to that, February. She states that in the last month she has been following the meal plan and exercise plans. Pre op work up completed as follows: SWL classes:? 01/30 BH appts: cleared 11/17/22 ? ? RD appts: cleared-10/30/22 Labs: 10/13/22 low D, B12: 347 H. pylori: 10/20/22-neg CXR: 10/13/22-nad EK10/13/22-incomplete RBBB- ordered ECHO and NM stress, 11/14/22-Normal EF, no valvular pathology, seen by cards 02/19/23, coronary CTA ordered, Sleep study 11/09/22 normal sleep study 11/09/22-normal ABD U/S: 11/21/22-fatty liver UGI: 11/21/22-mild GERD, small HH Current meal plan includes: 3 [employer] Protein shakes, (1 scoop in 8 oz low fat unsweetened almond milk first two shakes) First shake at 530am-730am on work days and 8am-10am on non-work days, Second shake at? 930am-1130am on work days and 12pm-2pm on non-work days 1 protein bar ([employer] bars) at 2pm-4pm on work days and 3pm-5pm on non-work days. Dinner at 530pm (8 forks of protein and 8 forks of salad/vegetables). Third shake (1 scoop) at 630pm-830pm everyday. Drinking 64 oz of water Current exercise plan includes: treadmill at home 45 min in the morning and 35 minutes in the afternoon, 300-310 per day, 6 days, speed 3-3.5, does not incline. PFSH Surgical History Hx of cholecystectomy Hx of hysterectomy Hx of tubal ligation Hx of section Family History Mother IgG4 deficiency Hypertension Father Diabetes Liver problem Son Diabetes Son No problems noted. Social History Alcohol intake: never Patient Tobacco Use Status: Never used Tobacco Review of Systems Const All systems reviewed & are unremarkable except as noted in HPI and below Assessment & Plan Assessment & Plan (1) Morbid obesity: Code(s): E66.01 - Morbid (severe) obesity due to excess calories Plan: She is now committed and has started making progress. While she is only lost 4.2 lb in the last month, this is more than she is lost in the previous 11 months. I have encouraged her to continue with the meal plan and increase exercise to 350 calories burned per day 6 days per week. She does not exercise on Sundays. We will have her return to the office in 1 month with an unexpected weight loss of 8-10 lb. Coding Level of Care Code Est Pt Level 3 (62671) Diagnoses Morbid obesity E66.01
[2023-09-26 15:07] VITALS: BP 116/74; PULSE 98; TEMP 36.2; O2SAT 99; BMI 45.0
== END 2023-09-26 15:25 | disposition home or self-care (01) ==
PROVIDERS: PCP Nurse Practitioner Family; Visit Provider Physician Assistant Surgical
DX: E66.01 Morbid (severe) obesity due to excess calories (principal); Z68.42 Body mass index [BMI] 45.0-49.9, adult
CPT/HCPCS: 99213

== ENCOUNTER → 2023-09-26 14:55 | Outpatient (BNVA) | payer OTHER, SELFPAY | PROVIDERS: PCP Nurse Practitioner Family; Visit Provider Physician Assistant Surgical | DX: E66.01 Morbid (severe) obesity due to excess calories (principal); Z68.42 Body mass index [BMI] 45.0-49.9, adult | CPT/HCPCS: 99212 ==